=== PATIENT | male | born 2005 | race Caucasian/White ===

== ENCOUNTER 2024-04-27 19:19 | Outpatient (REF) | payer OTHER, SELFPAY ==
--- NOTE | ~2024-04-27 | MR_ITS ---
CLINICAL HISTORY: RIGHT HAMSTRING Pain/injured Rt hamstring 2wks ago MRI right thigh without contrast Comparison: None Findings: There is edema in lateral aspect of semi tendinosis muscle. This is in the mid portion of the muscle length. Study was not performed to the tendon insertion. No retraction identified in the visualized muscle. Findings are consistent with partial-thickness muscular tear. Tendon is not assessed. No other intramuscular edema or signal abnormality. No acute bony signal abnormality in femur. Impression: Partial-thickness tear lateral aspect semi tendinosis muscle Distal tendon and insertion not imaged This document has been electronically signed by: Hesham Carver MD on 04/27/2024 20:24:56
--- OUTSIDE RECORDS SUMMARY | 2024-04-27 19:23 | XMS_ITS ---
Author Name [facility] Organization Unknown History of Medication Use Medication Directions Dispensed Refills Start Date End Date Stat prednisolone 15 mg/5 mL oral solution Take 15 mL twice a day by oral route for 3 days. Take 15 mL twice a day by oral route for 3 days. completed azithromycin 200 mg/5 mL oral suspension 12.5 ml PO QD x 5 days 12.5 ml PO QD x 5 days completed Augmentin 875 mg-125 mg tablet 1 tab PO BID x 10 days 1 tab PO BID x 10 days 07/28/2017 completed Keflex 500 mg capsule Take 2 capsules every 8 hours by oral route for 10 days. Take 2 capsules every 8 hours by oral route for 10 days. 10/29/2017 completed cefprozil 500 mg tablet 1 tab PO BID x 10 days 1 tab PO BID x 10 days 05/15/2016 completed cefprozil 250 mg/5 mL oral suspension 10 ml PO BID x 10 days 10 ml PO BID x 10 days completed GlycoLax 17 gram/dose oral powder Take by oral route. Give 1/2 capful of powder twice a day for the next 2-3 days, and if still constipated, can give 1 capful (=3 tsps) 2x/d Take by oral route. Give 1/2 capful of powder twice a day for the next 2-3 days, and if still constipated, can give 1 capful (=3 tsps) 2x/d 07/28/2017 completed albuterol sulfate 2.5 mg/3 mL (0.083 %) solution for nebulization 1 neb Q 4-6 hrs PRN cough/wheeze/SOB 1 neb Q 4-6 hrs PRN cough/wheeze/SOB 07/28/2017 completed amoxicillin 400 mg-potassium clavulanate 57 mg chewable tablet Take 2 tablets twice a day by oral route for 10 days. Take 2 tablets twice a day by oral route for 10 days. 01/07/2013 completed triamcinolone acetonide 0.1 % topical cream Apply 1 application twice a day by topical route for 7 days. Apply 1 application twice a day by topical route for 7 days. 07/02/2018 completed Flonase Allergy Relief 50 mcg/actuation nasal spray,suspension [place] 1 spray every day by intranasal route as directed for 30 days. [place] 1 spray every day by intranasal route as directed for 30 days. 10/29/2017 completed cetirizine 1 mg/mL oral solution 10 ml PO QD 10 ml PO QD completed clindamycin 75 mg/5 mL oral solution Take 10 mL every 8 hours by oral route for 14 days. Take 10 mL every 8 hours by oral route for 14 days. completed Albuterol Sulfate HFA 90 mcg/Actuation aerosol inhaler 2 puffs Q 4-6 hrs PRN cough/wheeze/SOB 2 puffs Q 4-6 hrs PRN cough/wheeze/SOB 07/02/2018 completed azithromycin 500 mg tablet Take 1 tablet (500 mg) by oral route once daily for 5 days Take 1 tablet (500 mg) by oral route once daily for 5 days 06/28/2019 completed Problems Problem Status Onset Date Problem Type Date of Resoluti on Source Elevated blood-pressure reading without diagnosis of hypertension active 2021-08-20 [facility]Act [facility] Injury of knee active 2019-09-09 ProblemAct [facility] Tear of lateral meniscus of knee active 2020-04-02 ProblemAct [facility] Overweight active ProblemAct [facility] Concussion with no loss of consciousness active 2018-07-02 ProblemAct [facility] Injury of left knee active 2022-02-12 ProblemAct [facility] Allergic rhinitis active ProblemAct [facility] Assessment and Plan ID Update Date Source Alert Text [place] [facility] - [id number] 12/26/2020 [place] [facility] - [id number] COVID Vaccination: This patient has received the PFR, COVID-19, mRNA, LNP-S, PF, 0.3mL vaccination on 12/26/2020 with lot number [id number] at [facility] [id number] - [address] [place] [facility] - [id number] 12/05/2020 [place] [facility] - [id number] COVID Vaccination: This patient has received the PFR, COVID-19, mRNA, LNP-S, PF, 0.3mL vaccination on 12/05/2020 with lot number [id number] at [facility] [id number] - [address] [place]
--- OUTSIDE RECORDS SUMMARY | 2024-04-27 19:23 | XMS_ITS | Clinical Summary ---
Author Organization [facility] Address [address] [place] [address] Care Team Providers Care Tribal Judge Name Role Phone Vicky Pires MD Primary Care Provider [phone] Allergies No known active allergies Medications No known medications Social History Tobacco Use Types Packs/Day Years Used Date Smoking Tobacco: Never Smokeless Tobacco: Never Alcohol Use Standard Drinks/Week Comments Never 0 (1 standard drink = 0.6 oz pur e alcohol) Sex and Gender Information Value Date Recorded Sex Assigned at Not on file Legal Sex Male 4:55 PM EDT Gender Identity Not on file Sexual Orientation Not on file Last Filed Vital Signs Vital Sign Reading Time Taken Comments Blood Pressure 146/80 08/13/2021 6:52 PM EDT Pulse 83 08/13/2021 6:52 PM EDT Temperature 37.1 ??C (98.8 ??F) 08/13/2021 6:52 PM ED T Respiratory Rate 17 08/13/2021 6:52 PM EDT Oxygen Saturation 97% 08/13/2021 6:52 PM EDT Inhaled Oxygen Concentration - - Weight 134 kg (295 lb) 08/13/2021 6:52 PM EDT Height 190.5 cm (6' 3 ) 08/13/2021 6:52 PM EDT Body Mass Index 36.87 08/13/2021 6:52 PM EDT Plan of Treatment Health Maintenance Due Date Last Done Comments Hepatitis C screening 2004 NonMedicare Preventative Exam 2004 Depression Screening 2016 HIV Screening 2019 HPV Vaccines (1 - Male 3-dose series) 2019 Adult Tdap-Td (1 - Tdap) 2023 Hepatitis B Vaccine (1 of 3 - 19+ 3-dose series) 03/21 [facility] [employer] Capture Hidden 10/09/2023 Covid-19 Vaccine ( season) 2023 Influenza Vaccine (#1) 2023 Insurance [place] [id number] Care Teams Tribal Judge Relationship Specialty Start Date End Date Vicky Pires MD [address] [facility] [place] [id number] PCP - General PEDIATRIC MEDICINE 08/13/21
== END 2024-04-27 19:20 | disposition home or self-care (01) ==
LOC: HO.MRI 19:19
PROVIDERS: Visit Provider Family Medicine
DX: S76.321A Laceration of muscle, fascia and tendon of the posterior muscle group at thigh level, right thigh, initial encounter (principal)
CPT/HCPCS: 73718

== ENCOUNTER → 2024-04-27 19:30 | Outpatient (BNV) | payer OTHER, SELFPAY | PROVIDERS: Visit Provider Radiology Diagnostic Radiology | DX: S76.312A Strain of muscle, fascia and tendon of the posterior muscle group at thigh level, left thigh, initial encounter (principal) | CPT/HCPCS: 73718 ==